=== PATIENT | male | born 2000 | race Caucasian/White ===

== ENCOUNTER 2020-07-17 19:28 | Emergency (ER) | payer OTHER ==
[~2020-07-17] VITALS: Ht 182 cm; Wt 83.9 kg
[2020-07-17 19:35] VITALS: BP 138/90
--- NOTE | 2020-07-17 19:52 | ED Integumentary General ---
General Chief Complaint: Laceration Stated Complaint: R BROW LAC Nursing Triage Note: TO ED VIA POV AND AMBULATORY TO TRIAGE WITH C/O RIGHT EYELID LAC AFTER ELBOW TO EYE DURING [facility]. History of Present Illness Date Seen by Provider: Jul 17, 2020 Time Seen by Provider: 19:35 Initial Comments 19-year-old male was at [facility] tonight when he took an elbow to the right eye. Small laceration just under his eyebrow. No active bleeding. He reports receiving a tetanus shot within the last 5 years. No vision changes or other complaints. Timing/Duration: just prior to arrival Location: face Associated Symptoms: denies symptoms Allergies and Home Medications Patient Home Medication List Home Medication List Reviewed: Yes Review of Systems Review of Systems Constitutional: no symptoms reported, see HPI EENTM: see HPI, no symptoms reported; No blurred vision, No double vision, No eye pain, No tearing, No vision loss Skin: see HPI, other (1 cm superficial laceration below right eyebrow) All Other Systems Reviewed Negative Unless Noted: Yes Past Fuawpgl-Ylpkjg-Kacxgm Hx Past Med/Social Hx: Reviewed Nursing Past Med/Soc Hx Patient Social History Alcohol Use: Occasionally Uses Recreational Drug Use: No Smoking Status: Never a Smoker Recent Foreign Travel: No Contact w/Someone Who Travel: No Recent Infectious Disease Expo: No Recent Hopitalizations: No Physical Abuse: No Sexual Abuse: No Mistreated: No Fear: No Immunizations Up To Date Tetanus Booster (TDap): Less than 5yrs Seasonal Allergies Seasonal Allergies: No Past Medical History Surgeries: Yes Orthopedic Respiratory: No Cardiac: No Neurological: No Genitourinary: No Gastrointestinal: No Musculoskeletal: No Endocrine: No HEENT: No Cancer: No Psychosocial: No Integumentary: No Blood Disorders: No Physical Exam Vital Signs Vital Signs - First Documented 07/17/20 19:35 Temp 37.0 Pulse 88 Resp 16 B/P (MAP) 138/90 (106) O2 Delivery Room Air Capillary Refill : Less Than 3 Seconds General Appearance: WD/WN, no apparent distress HEENT: PERRL/EOMI, normal ENT inspection Cardiovascular: normal peripheral pulses, regular rate, rhythm Respiratory: chest non-tender, lungs clear, normal breath sounds Neurologic/Psychiatric: no motor/sensory deficits, alert, normal mood/affect Skin Problem Location: face Skin Problem Character: other (laceration right eye region, 1 cm) Procedures/Interventions Wound Location: Face (below right eye) Wound Length (cm): 1 Wound's Depth, Shape: superficial Wound Explored: clean Irrigated w/ Saline (ccs): 100 Other Closure Supply: Wound Adhesive Sterile Dressing Applied?: No Progress Wound cleaned them all approximated with skin adhesive. Patient tolerated well Progress/Results/Core Measures Results/Orders Vital Signs/I&O 07/17/20 19:35 Temp 37.0 Pulse 88 Resp 16 B/P (MAP) 138/90 (106) O2 Delivery Room Air Blood Pressure Mean: 106 Departure Impression Primary Impression: Laceration of right eye region Disposition: HOME, SELF-CARE Condition: Improved Departure-Patient Inst. Decision time for Depature: 19:45 Referrals: NO,LOCAL PHYSICIAN (PCP) Primary Care Physician JULIANN EDMONDS MD Patient Instructions: Laceration Repair With Glue (DC) Add. Discharge Instructions: Keep wound clean and dry. Do not apply any ointments or petroleum based ointments Leave glue intact and do not peel or pick at it. Glue will fall off on its own. Follow-up in the emergency department for new, urgent health care needs. All discharge instructions reviewed with patient and/or family. Voiced understanding. Copy Copies To 1: JULIANN EDMONDS MD, AMY ARNP Jul 17, 2020 19:52
== END 2020-07-17 19:54 | disposition home or self-care (01) ==
LOC: ER 19:30
DX: S01.111A Laceration without foreign body of right eyelid and periocular area, initial encounter (principal); X58.XXXA Exposure to other specified factors, initial encounter; Y93.45 Activity, cheerleading
CPT/HCPCS: 12011